=== PATIENT | female | born 1935 | race Caucasian/White ===

== ENCOUNTER → 2016-11-26 | Outpatient (CLI) | payer OTHER, MEDICAID ==
[~2016-11-26] MED LIST: AMLO5TAB; ASPI81CH43; GUAISYP5; LANS15CA21; MELO-86; NOR5T; TOLT2TAB6; [UNRECOGNIZED DRUG - CODE]
[2016-11-26 15:37] LABS: Basophils # (auto) 0 uL; Basophils % (auto) 0.6 % (0.0-2.0); Eosinophils # (auto) 0.3 uL; Eosinophils % (auto) 3.2 % (0.0-7.0); Hematocrit 46.2 % (36.0-46.0); Hemoglobin 15.5 g/dL (12.2-16.2); Lymphocytes % (auto) 25.8 % (10.0-50.0); Mean Corpuscular Hemoglobin 33.8 pg (28.0-32.0); Mean Corpuscular Hgb Conc. 33.5 g/dL (32.0-36.0); Mean Corpuscular Volume 100.8 fL (80.0-100.0); Mean Platelet Volume 8.4 fL (7.4-10.4); Monocytes # (auto) 0.5 uL; Monocytes % (auto) 6.9 % (0.0-12.0); Neutrophils % (auto) 63.5 % (37.0-80.0); Platelet Count (auto) 312 10^3/uL (140-450); Red Cell Distribution Width 15.6 % (11.6-16.0); White Blood Cell 7.9 10^3/uL (4.4-10.8)
[2016-11-26 16:23] LABS: Albumin 3.8 g/dL (3.4-5.0); BUN/Creatinine Ratio 26.4; Bilirubin, Total 0.6 mg/dL (0.2-1.0); Calcium 9.4 mg/dL (8.5-10.1); Potassium 3.8 mmol/L (3.5-5.1); Total Protein 7.6 g/dL (6.4-8.2)
== END | disposition home or self-care (01) ==
LOC: LAB 15:08
DX: Z79.899 Other long term (current) drug therapy (principal); I10 Essential (primary) hypertension; M06.9 Rheumatoid arthritis, unspecified; M54.10 Radiculopathy, site unspecified; D64.9 Anemia, unspecified; M25.50 Pain in unspecified joint
CPT/HCPCS: 36415; 80053; 85025; 85652; 86141

== ENCOUNTER → 2016-12-09 | Outpatient (CLI) | payer OTHER, MEDICAID ==
[2016-12-09 09:51] LABS: Basophils # (auto) 0.1 uL; Basophils % (auto) 1.1 % (0.0-2.0); Eosinophils # (auto) 0.4 uL; Eosinophils % (auto) 5.7 % (0.0-7.0); Hematocrit 44.6 % (36.0-46.0); Hemoglobin 14.8 g/dL (12.2-16.2); Lymphocytes # (auto) 1.8 uL; Lymphocytes % (auto) 24.9 % (10.0-50.0); Mean Corpuscular Hemoglobin 33.3 pg (28.0-32.0); Mean Corpuscular Hgb Conc. 33.3 g/dL (32.0-36.0); Monocytes # (auto) 0.5 uL; Monocytes % (auto) 6.3 % (0.0-12.0); Neutrophils # (auto) 4.6 uL; Platelet Count (auto) 275 10^3/uL (140-450); Red Cell Distribution Width 15.4 % (11.6-16.0); White Blood Cell 7.4 10^3/uL (4.4-10.8)
[2016-12-09 09:57] LABS: Albumin 3.6 g/dL (3.4-5.0); BUN/Creatinine Ratio 23.3; Bilirubin, Total 0.9 mg/dL (0.2-1.0); Calcium 9.5 mg/dL (8.5-10.1); Potassium 3.8 mmol/L (3.5-5.1); Total Protein 7.1 g/dL (6.4-8.2); Urine Bilirubin Negative (Negative); Urine Blood Negative /uL (Negative); Urine Color Yellow (Yellow); Urine Glucose Normal (Normal); Urine Ketone Negative (Negative); Urine RBC 2 /hpf (0 - 4); Urine Squamous Epithelial Cell FEW /hpf (<5); Urine Urobilinogen Normal (Negative)
[2016-12-09 10:08] LABS: Urine Nitrite POSITIVE (Negative)
== END | disposition home or self-care (01) ==
LOC: LAB 08:33
PROVIDERS: ATTEND Physician Assistant
DX: I10 Essential (primary) hypertension (principal); E78.00 Pure hypercholesterolemia, unspecified; E55.9 Vitamin D deficiency, unspecified; J44.9 Chronic obstructive pulmonary disease, unspecified
CPT/HCPCS: 36415; 80053; 80061; 81001; 82306; 82607; 83036; 84443; 85025

== ENCOUNTER 2017-01-25 14:03 | Emergency (ER) | payer OTHER, MEDICAID ==
[~2017-01-25] VITALS: Ht 170.2 cm; Wt 78.0 kg
[2017-01-25 14:14] VITALS: BP 124/70
[2017-01-25 14:57] LABS: Basophils # (auto) 0.1 uL; Basophils % (auto) 0.6 % (0.0-2.0); Eosinophils # (auto) 0.2 uL; Eosinophils % (auto) 1.9 % (0.0-7.0); Hematocrit 45.2 % (36.0-46.0); Hemoglobin 15.1 g/dL (12.2-16.2); Lymphocytes # (auto) 2.1 uL; Mean Corpuscular Hemoglobin 32.6 pg (28.0-32.0); Mean Corpuscular Hgb Conc. 33.3 g/dL (32.0-36.0); Mean Corpuscular Volume 97.7 fL (80.0-100.0); Mean Platelet Volume 8.5 fL (7.4-10.4); Monocytes # (auto) 0.4 uL; Monocytes % (auto) 4.6 % (0.0-12.0); Neutrophils # (auto) 6.5 uL; Neutrophils % (auto) 69.9 % (37.0-80.0); Platelet Count (auto) 330 10^3/uL (140-450); Red Cell Distribution Width 15.5 % (11.6-16.0); White Blood Cell 9.3 10^3/uL (4.4-10.8)
[2017-01-25 15:17] LABS: Albumin 3.8 g/dL (3.4-5.0); BUN/Creatinine Ratio 33.3; Calcium 9.6 mg/dL (8.5-10.1); Potassium 3.6 mmol/L (3.5-5.1); Total Protein 7.6 g/dL (6.4-8.2)
== END 2017-01-25 19:26 | disposition left against medical advice (07) ==
LOC: EDUNIT# 14:03 → ER 14:03
DX: R53.1 Weakness (principal); Z53.21 Procedure and treatment not carried out due to patient leaving prior to being seen by health care provider
CPT/HCPCS: 36415; 80053; 85025; 93005

== ENCOUNTER 2017-02-10 19:36 | Inpatient (IN) | payer OTHER, MEDICAID ==
[~2017-02-10] VITALS: Ht 170.2 cm; Wt 76.5 kg
[2017-02-10 20:37] LABS: Hemoglobin 15.4 g/dL (12.2-16.2); Mean Corpuscular Hemoglobin 32.7 pg (28.0-32.0); Mean Corpuscular Hgb Conc. 33.4 g/dL (32.0-36.0); Mean Corpuscular Volume 97.8 fL (80.0-100.0); Mean Platelet Volume 8.6 fL (7.4-10.4); Platelet Count (auto) 330 10^3/uL (140-450); Red Cell Distribution Width 15.3 % (11.6-16.0); SUSPECT VIEW TRANSMISSION; White Blood Cell 18.5 10^3/uL (4.4-10.8)
[2017-02-10] MEDS ORDERED: SODIUM CHLORIDE 0.9% 1,000 ML IV ONE (20:45)
[2017-02-10] MEDS ORDERED: cefTRIAXone 1GM/50ML D5W 50 ML IV ONE (20:45)
[2017-02-10] MEDS ORDERED: VANCOMYCIN 1GM/250ML D5W 250 ML IV ONE (20:45)
[2017-02-10 20:46] LABS: Urine Bilirubin Negative (Negative); Urine Blood Negative /uL (Negative); Urine Color Yellow (Yellow); Urine Glucose Normal (Normal); Urine Ketone Negative (Negative); Urine Mucus FEW (None Seen); Urine RBC <1 /hpf (0 - 4); Urine Squamous Epithelial Cell FEW /hpf (<5)
[2017-02-10 20:47] LABS: Urine Nitrite POSITIVE (Negative)
[2017-02-10 20:50] LABS: Metamyelocytes % 0; Myelocytes % 0; Promyelocytes % 0; Reactive Lymphocytes 0
[2017-02-10 20:56] LABS: INR 0.97 (0.9-1.15); Partial Thromboplastin Time 26.8 sec (22.64-33.71); Prothrombin Time 10.5 sec (9.37-12.3)
[2017-02-10 21:28] LABS: Albumin 4.1 g/dL (3.4-5.0); Alkaline Phosphatase 93 U/L (45-117); Anion Gap 9 (5-15); Aspartate Aminotransferase 30 U/L (15-37); BUN/Creatinine Ratio 25.3; Bilirubin, Total 0.9 mg/dL (0.2-1.0); Blood Urea Nitrogen 25 mg/dL (7-18); Calcium 9.9 mg/dL (8.5-10.1); Carbon Dioxide 27 mmol/L (21-32); Chloride 101 mmol/L (98-107); GFR African American 70 mL/min; GFR Non-African American 58 mL/min; Glucose 150 mg/dL (74-106); Magnesium 2.4 mg/dL (1.6-2.6); Sodium 137 mmol/L (136-145); Total Protein 8.1 g/dL (6.4-8.2)
[2017-02-10 22:35] LABS: Platelet Estimate Adequate
[2017-02-11] MEDS ORDERED: HYDROmorphone HCL 2 MG/ML VL IV ONE (01:15)
[2017-02-11] MEDS ORDERED: ONDANSETRON HCL 4 MG/2 ML VIAL IV ONE (01:15)
[2017-02-11] MEDS ORDERED: ACETAMINOPHEN 325 MG TAB PO PRN (06:15)
[2017-02-11] MEDS ORDERED: NITROGLYCERIN 0.4 MG SL TAB SL PRN (06:15)
[2017-02-11] MEDS ORDERED: ONDANSETRON HCL 4 MG/2 ML VIAL IV PRN (06:15)
[2017-02-11] MEDS ORDERED: MORPHINE SULF INJ 2 MG/ML SYRINGE 1ML IV PRN (06:15)
[2017-02-11] MEDS ORDERED: POTASSIUM CHL 20 Meq TABLET PO ONE (08:00)
[2017-02-11] MEDS ORDERED: VANCOMYCIN PER PHARMACY 0 MG IV SCH (09:00)
[2017-02-11] MEDS: cefTRIAXone 1GM/50ML D5W 50 ML IV SCH ×2 (09:02→21:41)
[2017-02-11] MEDS: FAMOTIDINE 20 MG TAB PO SCH ×2 (10:30→21:41)
[2017-02-11] MEDS: amLODIPine BESYLATE 5 MG TAB PO SCH (10:30)
[2017-02-11] MEDS: ENOXAPARIN SOD 40 MG/0.4 ML SYRINGE SC SCH (10:30)
[2017-02-11] MEDS: ERYTHROMY OPTH OINT 5mg/gm 1gm OP SCH ×4 (10:30→22:00)
[2017-02-11] MEDS: VANCOMYCIN 1GM/250ML D5W 250 ML IV SCH ×2 (10:30→23:09)
[2017-02-11] MEDS: HYDROcodone-ACET 5/325MG TAB PO PRN (11:53)
[2017-02-11] MEDS ORDERED: MIRA25TA PO (13:28)
[2017-02-11] MEDS ORDERED: DICL-163 PO (13:28)
[2017-02-11] MEDS ORDERED: PAR20T PO (13:28)
[2017-02-11] MEDS ORDERED: HYDR-2652 PO (13:28)
[2017-02-11] MEDS ORDERED: CHLO50TA PO (13:28)
[2017-02-11] MEDS: SODIUM CHLORIDE 0.9% 1,000 ML IV SCH (14:37)
[2017-02-11 22:54] VITALS: BP 129/75
[2017-02-12] MEDS: ERYTHROMY OPTH OINT 5mg/gm 1gm OP SCH ×6 (01:22→22:00)
[2017-02-12] MEDS: HYDROcodone-ACET 5/325MG TAB PO PRN ×2 (03:23→15:48)
[2017-02-12 06:15] LABS: Basophils # (auto) 0 uL; Basophils % (auto) 0.3 % (0.0-2.0); Eosinophils # (auto) 0 uL; Eosinophils % (auto) 0.4 % (0.0-7.0); Hematocrit 40.3 % (36.0-46.0); Hemoglobin 13.2 g/dL (12.2-16.2); Lymphocytes # (auto) 1.4 uL; Lymphocytes % (auto) 15.4 % (10.0-50.0); Mean Corpuscular Hemoglobin 32.3 pg (28.0-32.0); Mean Corpuscular Hgb Conc. 32.8 g/dL (32.0-36.0); Mean Corpuscular Volume 98.4 fL (80.0-100.0); Mean Platelet Volume 8.8 fL (7.4-10.4); Monocytes # (auto) 0.8 uL; Monocytes % (auto) 9.2 % (0.0-12.0); Neutrophils # (auto) 6.7 uL; Neutrophils % (auto) 74.7 % (37.0-80.0); Platelet Count (auto) 245 10^3/uL (140-450); Red Cell Distribution Width 15.2 % (11.6-16.0)
[2017-02-12] MEDS: SODIUM CHLORIDE 0.9% 1,000 ML IV SCH ×2 (06:22→23:35)
[2017-02-12 06:30] LABS: Albumin 3.2 g/dL (3.4-5.0); BUN/Creatinine Ratio 22.2; Magnesium 2.1 mg/dL (1.6-2.6)
[2017-02-12 06:33] LABS: Bilirubin, Total 0.6 mg/dL (0.2-1.0); Total Protein 6.6 g/dL (6.4-8.2)
[2017-02-12 06:47] LABS: Potassium 2.9 mmol/L (3.5-5.1)
[2017-02-12 08:00] VITALS: BP 125/66
[2017-02-12] MEDS: cefTRIAXone 1GM/50ML D5W 50 ML IV SCH ×2 (08:37→21:11)
[2017-02-12 09:00] VITALS: BP 125/66
[2017-02-12] MEDS: VANCOMYCIN 1GM/250ML D5W 250 ML IV SCH (11:13)
[2017-02-12] MEDS: ENOXAPARIN SOD 40 MG/0.4 ML SYRINGE SC SCH (11:14)
[2017-02-12] MEDS: amLODIPine BESYLATE 5 MG TAB PO SCH (11:14)
[2017-02-12] MEDS: FAMOTIDINE 20 MG TAB PO SCH ×2 (11:15→21:11)
[2017-02-12] MEDS ORDERED: POTASSIUM CHL 20 Meq TABLET PO ONE (12:45)
[2017-02-12 13:00] VITALS: BP 115/64
[2017-02-12 17:00] VITALS: BP 121/73
[2017-02-13] MEDS: ERYTHROMY OPTH OINT 5mg/gm 1gm OP SCH ×2 (02:00→05:40)
[2017-02-13 06:23] LABS: Calcium 9.3 mg/dL (8.5-10.1); Potassium 3.1 mmol/L (3.5-5.1)
[2017-02-13 06:25] LABS: BUN/Creatinine Ratio 18.4
[2017-02-13 09:02] VITALS: BP 130/61
[2017-02-13] MEDS: FAMOTIDINE 20 MG TAB PO SCH (09:53)
[2017-02-13] MEDS: amLODIPine BESYLATE 5 MG TAB PO SCH (09:54)
[2017-02-13] MEDS: ENOXAPARIN SOD 40 MG/0.4 ML SYRINGE SC SCH (09:54)
[2017-02-13] MEDS: cefTRIAXone 1GM/50ML D5W 50 ML IV SCH (09:54)
[2017-02-13] MEDS ORDERED: AMOX-263 PO (11:35)
[2017-02-13 13:23] VITALS: BP 130/61
[2017-02-13 13:28] VITALS: BP 114/66
== END 2017-02-13 14:20 | disposition home or self-care (01) | DRG 853 ==
LOC: EDBD 19:36 → ER 19:38 → TELE 19:39 → TELE-WESTW 02-11 20:45
PROVIDERS: ADMIT Nurse Practitioner; ATTEND Internal Medicine
PROC: 09BM3ZZ Excision of Nasal Septum, Percutaneous Approach (ICD-10-PCS; principal; 2017-02-10)
DX: A41.51 Sepsis due to Escherichia coli [E. coli] (principal); G08 Intracranial and intraspinal phlebitis and thrombophlebitis; G93.41 Metabolic encephalopathy; L03.211 Cellulitis of face; N39.0 Urinary tract infection, site not specified; E87.6 Hypokalemia; F17.210 Nicotine dependence, cigarettes, uncomplicated; H10.9 Unspecified conjunctivitis; I10 Essential (primary) hypertension; J44.9 Chronic obstructive pulmonary disease, unspecified; Z80.8 Family history of malignant neoplasm of other organs or systems; Z86.73 Personal history of transient ischemic attack (TIA), and cerebral infarction without residual deficits; M19.90 Unspecified osteoarthritis, unspecified site; Z88.8 Allergy status to other drugs, medicaments and biological substances; Z79.82 Long term (current) use of aspirin; Z90.710 Acquired absence of both cervix and uterus; Z90.89 Acquired absence of other organs; S02.2XXA Fracture of nasal bones, initial encounter for closed fracture; Z85.828 Personal history of other malignant neoplasm of skin
CPT/HCPCS: 36415; 51702; 70450; 70486; 71010; 80048; 80053; 80202; 80307; 80320; 81001; 83605; 83735; 84132; 84484; 85007; 85025; 85027; 85379; 85610; 85730; 87040; 87086; 87088; 87186; 87205; 93005; 94761; 95819; 96361; 96365; 96366; 96367; 96375; 97116; 97530; J0696; J2405

== ENCOUNTER 2017-04-01 19:56 | Emergency (ER) | payer MEDICAID, OTHER ==
[~2017-04-01] VITALS: Ht 170.2 cm; Wt 79.4 kg
[~2017-04-01 19:56] MED LIST changes: -AMLO5TAB; +AMOX-263 PO; -ASPI81CH43; +CHLO50TA PO; +DICL-163 PO; -GUAISYP5; +HYDR-2652 PO; -LANS15CA21; -MELO-86; +MIRA25TA PO; -NOR5T; +PAR20T PO; -TOLT2TAB6; -[UNRECOGNIZED DRUG - CODE]
[2017-04-01 20:23] VITALS: BP 147/72
[2017-04-01 21:04] LABS: Basophils # (auto) 0 uL; Basophils % (auto) 0.4 % (0.0-2.0); CONDITION Y; Eosinophils # (auto) 0.1 uL; Eosinophils % (auto) 1.3 % (0.0-7.0); Hematocrit 45.4 % (36.0-46.0); Hemoglobin 15.2 g/dL (12.2-16.2); Lymphocytes # (auto) 1.4 uL; Mean Corpuscular Hemoglobin 32.7 pg (28.0-32.0); Mean Corpuscular Hgb Conc. 33.5 g/dL (32.0-36.0); Mean Corpuscular Volume 97.6 fL (80.0-100.0); Mean Platelet Volume 8.6 fL (7.4-10.4); Monocytes # (auto) 0.8 uL; Monocytes % (auto) 10.7 % (0.0-12.0); Neutrophils # (auto) 5.1 uL; Neutrophils % (auto) 68.6 % (37.0-80.0); Platelet Count (auto) 293 10^3/uL (140-450); Red Cell Distribution Width 16.6 % (11.6-16.0); White Blood Cell 7.5 10^3/uL (4.4-10.8)
[2017-04-01 21:16] LABS: Albumin 3.6 g/dL (3.4-5.0); Anion Gap 10 (5-15); Aspartate Aminotransferase 30 U/L (15-37); BUN/Creatinine Ratio 20.5; Blood Urea Nitrogen 16 mg/dL (7-18); Calcium 9.4 mg/dL (8.5-10.1); Carbon Dioxide 23 mmol/L (21-32); Chloride 109 mmol/L (98-107); GFR African American 91 mL/min; GFR Non-African American 76 mL/min; Glucose 121 mg/dL (74-106); Magnesium 2.1 mg/dL (1.6-2.6); Potassium 3.6 mmol/L (3.5-5.1); Sodium 142 mmol/L (136-145)
[2017-04-01 21:17] LABS: INR 0.96 (0.9-1.15); Partial Thromboplastin Time 27.3 sec (22.64-33.71); Prothrombin Time 10.5 sec (9.37-12.3)
[2017-04-01 21:21] LABS: Alkaline Phosphatase 91 U/L (45-117); Bilirubin, Total 0.6 mg/dL (0.2-1.0); Total Protein 7.6 g/dL (6.4-8.2)
[2017-04-01 21:23] LABS: B-Type Natriuretic Peptide 42.47 pg/mL (0-100)
[2017-04-01 21:35] LABS: Temperature: 23.4 C (20.0-25.0)
== END 2017-04-02 | disposition left against medical advice (07) ==
LOC: ER 20:04
DX: R53.1 Weakness (principal); R47.81 Slurred speech; Z53.21 Procedure and treatment not carried out due to patient leaving prior to being seen by health care provider
CPT/HCPCS: 36415; 70450; 71010; 80053; 83735; 83880; 84484; 85025; 85610; 85730; 93005

== ENCOUNTER → 2017-04-15 | Outpatient (CLI) | payer OTHER | END | disposition home or self-care (01) | LOC: LAB 11:30 | PROVIDERS: ATTEND Psychiatry & Neurology Neurology | DX: Z09 Encounter for follow-up examination after completed treatment for conditions other than malignant neoplasm (principal) | CPT/HCPCS: 83090 ==

== ENCOUNTER 2017-06-09 18:50 | Inpatient (IN) | payer OTHER, MEDICAID ==
[~2017-06-09] VITALS: Ht 167.6 cm; Wt 77.1 kg
[2017-06-09] MEDS ORDERED: ASPirin 81 mg TAB PO ONE (20:00)
[2017-06-09] MEDS ORDERED: SODIUM CHLORIDE 0.9% 1,000 ML IV ONE (20:00)
[2017-06-09] MEDS ORDERED: ACETAMINOPHEN 500 MG TAB PO PRN (20:30)
[2017-06-09] MEDS ORDERED: MORPHINE SULF INJ 2 MG/ML SYRINGE 1ML IV PRN (20:30)
[2017-06-09] MEDS ORDERED: HYDROcodone-ACET 5/325MG TAB PO PRN (20:30)
[2017-06-09] MEDS ORDERED: LACTULOSE 20Gm/30ML SOLN PO PRN (20:30)
[2017-06-09 20:35] LABS: Basophils # (auto) 0.1 uL; Basophils % (auto) 0.9 % (0.0-2.0); CONDITION Y; Eosinophils # (auto) 0.2 uL; Eosinophils % (auto) 2.1 % (0.0-7.0); Hematocrit 44.3 % (36.0-46.0); Hemoglobin 14.7 g/dL (12.2-16.2); Lymphocytes # (auto) 2.2 uL; Mean Corpuscular Hemoglobin 33.2 pg (28.0-32.0); Mean Corpuscular Hgb Conc. 33.1 g/dL (32.0-36.0); Mean Corpuscular Volume 100.3 fL (80.0-100.0); Mean Platelet Volume 9.2 fL (7.4-10.4); Monocytes # (auto) 0.5 uL; Neutrophils # (auto) 5.2 uL; Platelet Count (auto) 265 10^3/uL (140-450); White Blood Cell 8.1 10^3/uL (4.4-10.8)
[2017-06-09 20:53] LABS: Chloride 109 mmol/L (98-107); Potassium 3.4 mmol/L (3.5-5.1); Sodium 143 mmol/L (136-145)
[2017-06-09 21:00] LABS: Albumin 3.2 g/dL (3.4-5.0); Anion Gap 8 (5-15); Aspartate Aminotransferase 44 U/L (15-37); BUN/Creatinine Ratio 23.5; Blood Urea Nitrogen 20 mg/dL (7-18); Carbon Dioxide 26 mmol/L (21-32); GFR African American 83 mL/min; GFR Non-African American 68 mL/min; Glucose 104 mg/dL (74-106); Magnesium 2.3 mg/dL (1.6-2.6)
[2017-06-09 21:09] LABS: Alkaline Phosphatase 91 U/L (45-117); Bilirubin, Total 0.7 mg/dL (0.2-1.0); Total Protein 6.8 g/dL (6.4-8.2)
[2017-06-09 21:11] LABS: B-Type Natriuretic Peptide 23.58 pg/mL (0-100)
[2017-06-09 21:12] LABS: Temperature: 22.1 C (20.0-25.0)
[2017-06-09 22:07] VITALS: BP 163/79
[2017-06-09] MEDS: ATORVASTATIN 20 MG TAB PO SCH (22:07)
[2017-06-09] MEDS: hydrALAZINE HCL 25 MG TAB PO SCH (22:07)
[2017-06-09] MEDS ORDERED: HYDR-4663 PO (23:09)
[2017-06-09] MEDS ORDERED: METH2.5T3 PO (23:09)
[2017-06-09] MEDS ORDERED: PYRI200T8 PO (23:13)
[2017-06-09] MEDS ORDERED: FLUT250M2 INH (23:13)
[2017-06-09] MEDS ORDERED: FOLI1TAB6 PO (23:13)
[2017-06-09] MEDS ORDERED: ASCO500T11 PO (23:13)
[2017-06-09] MEDS ORDERED: GABA-339 PO (23:13)
[2017-06-09] MEDS ORDERED: LANS30CA63 PO (23:13)
[2017-06-09 23:39] VITALS: BP 163/79
[2017-06-10] VITALS (7 sets, daily range): BP systolic 132–163; BP diastolic 71–89
[2017-06-10 06:59] LABS: Basophils # (auto) 0 uL; Basophils % (auto) 0.6 % (0.0-2.0); CONDITION Y; Eosinophils # (auto) 0.2 uL; Eosinophils % (auto) 4.1 % (0.0-7.0); Hematocrit 41.3 % (36.0-46.0); Hemoglobin 13.9 g/dL (12.2-16.2); Lymphocytes # (auto) 1.9 uL; Lymphocytes % (auto) 31.6 % (10.0-50.0); Mean Corpuscular Hemoglobin 33.2 pg (28.0-32.0); Mean Corpuscular Hgb Conc. 33.6 g/dL (32.0-36.0); Mean Corpuscular Volume 98.6 fL (80.0-100.0); Mean Platelet Volume 9.2 fL (7.4-10.4); Monocytes # (auto) 0.5 uL; Monocytes % (auto) 7.9 % (0.0-12.0); Neutrophils # (auto) 3.4 uL; Neutrophils % (auto) 55.8 % (37.0-80.0); Platelet Count (auto) 258 10^3/uL (140-450); Red Cell Distribution Width 16.8 % (11.6-16.0); White Blood Cell 6.1 10^3/uL (4.4-10.8)
[2017-06-10 07:23] LABS: BUN/Creatinine Ratio 30.8; Calcium 9.2 mg/dL (8.5-10.1); Potassium 3.2 mmol/L (3.5-5.1)
[2017-06-10 08:45] LABS: Temperature: 21.9 C (20.0-25.0)
[2017-06-10] MEDS: hydrALAZINE HCL 25 MG TAB PO SCH ×2 (10:00→22:08)
[2017-06-10] MEDS: PARoxetine 20 MG TAB PO SCH (10:27)
[2017-06-10] MEDS: ENOXAPARIN SOD 40 MG/0.4 ML SYRINGE SC SCH (10:28)
[2017-06-10] MEDS ORDERED: LORazepam 2MG/ML-1ML VIAL IV ONE (11:15)
[2017-06-10 14:04] LABS: Urine Bilirubin Negative (Negative); Urine Blood TRACE /uL (Negative); Urine Color Yellow (Yellow); Urine Glucose Normal (Normal); Urine Ketone Negative (Negative); Urine Mucus FEW (None Seen); Urine Nitrite Negative (Negative); Urine RBC 3 /hpf (0 - 4); Urine Squamous Epithelial Cell FEW /hpf (<5); Urine Urobilinogen Normal (Negative); Urine pH 5.5 (5.0-8.0)
[2017-06-10] MEDS ORDERED: METH2.5T3 PO (15:26)
[2017-06-10] MEDS ORDERED: [UNRECOGNIZED DRUG - CODE] OR ×2 (15:30→15:32)
[2017-06-10] MEDS ORDERED: PYRI50TA PO (15:32)
[2017-06-10] MEDS ORDERED: POTASSIUM CHL 20 Meq TABLET PO ONE (17:45)
[2017-06-10] MEDS ORDERED: ASPirin-EC 81 mg tab PO ONE (18:00)
[2017-06-10] MEDS: ATORVASTATIN 20 MG TAB PO SCH (22:08)
[2017-06-11 05:30] VITALS: BP 150/69
[2017-06-11 06:54] LABS: Magnesium 2.2 mg/dL (1.6-2.6); Potassium 3.4 mmol/L (3.5-5.1)
[2017-06-11 07:54] VITALS: BP 139/86
[2017-06-11] MEDS ORDERED: POTASSIUM CHL 20 Meq TABLET PO ONE (09:30)
[2017-06-11] MEDS: hydrALAZINE HCL 25 MG TAB PO SCH ×2 (10:16→21:51)
[2017-06-11] MEDS: ENOXAPARIN SOD 40 MG/0.4 ML SYRINGE SC SCH (10:16)
[2017-06-11] MEDS: PARoxetine 20 MG TAB PO SCH (10:16)
[2017-06-11] MEDS: ASPirin-EC 81 mg tab PO SCH (10:16)
[2017-06-11] MEDS: SOD CHL 0.9%/ KCL 20MEQ 1,000 ML IV SCH (11:15)
[2017-06-11] MEDS ORDERED: cefTRIAXone 1GM/50ML D5W 50 ML IV ONE (11:15)
[2017-06-11] MEDS ORDERED: traMADol HCL 50 MG TAB PO PRN (11:45)
[2017-06-11 11:50] VITALS: BP_SYST 126; BP_SYST 147; BP_DIAS 60; BP_DIAS 86
[2017-06-11 17:05] VITALS: BP 149/76
[2017-06-11 20:00] VITALS: BP 154/81
[2017-06-11] MEDS: ATORVASTATIN 20 MG TAB PO SCH (21:51)
[2017-06-11 22:00] VITALS: BP 154/81
[2017-06-12] MEDS: SOD CHL 0.9%/ KCL 20MEQ 1,000 ML IV SCH ×2 (00:35→02:54)
[2017-06-12 05:00] VITALS: BP 154/75
[2017-06-12 06:28] LABS: Potassium 3.6 mmol/L (3.5-5.1)
[2017-06-12 06:37] LABS: BUN/Creatinine Ratio 26.1; Calcium 8.8 mg/dL (8.5-10.1)
[2017-06-12] MEDS: cefTRIAXone 1GM/50ML D5W 50 ML IV SCH (09:12)
[2017-06-12] MEDS: ENOXAPARIN SOD 40 MG/0.4 ML SYRINGE SC SCH ×2 (10:30→10:40)
[2017-06-12] MEDS: ASPirin-EC 81 mg tab PO SCH (10:30)
[2017-06-12] MEDS: hydrALAZINE HCL 25 MG TAB PO SCH ×2 (10:31→21:50)
[2017-06-12] MEDS: PARoxetine 20 MG TAB PO SCH (10:33)
[2017-06-12 12:12] VITALS: BP 118/74
[2017-06-12 12:13] VITALS: BP 148/59
[2017-06-12 16:36] VITALS: BP 140/67
[2017-06-12 20:00] VITALS: BP 140/67
[2017-06-12] MEDS: ATORVASTATIN 20 MG TAB PO SCH (21:50)
[2017-06-12 22:00] VITALS: BP 153/58
[2017-06-13] MEDS: SOD CHL 0.9%/ KCL 20MEQ 1,000 ML IV SCH (03:15)
[2017-06-13 05:21] VITALS: BP 156/77
[2017-06-13 08:00] VITALS: BP 169/59
[2017-06-13 08:25] VITALS: BP 169/59
[2017-06-13] MEDS: ASPirin-EC 81 mg tab PO SCH (09:30)
[2017-06-13] MEDS: hydrALAZINE HCL 25 MG TAB PO SCH (09:30)
[2017-06-13] MEDS: PARoxetine 20 MG TAB PO SCH (09:30)
[2017-06-13] MEDS: cefTRIAXone 1GM/50ML D5W 50 ML IV SCH (09:31)
[2017-06-13] MEDS: ENOXAPARIN SOD 40 MG/0.4 ML SYRINGE SC SCH (09:35)
[2017-06-13] MEDS ORDERED: CEPH-37 PO (09:57)
[2017-06-13] MEDS ORDERED: LOS25T PO (09:57)
[2017-06-13] MEDS ORDERED: LOSARTAN POTASSIUM 25 MG TAB PO SCH (10:00)
[2017-06-13 13:00] VITALS: BP 144/66
[2017-06-13 13:09] VITALS: BP 144/66
[2017-06-13 15:50] VITALS: BP 144/66
== END 2017-06-13 15:50 | disposition home or self-care (01) | DRG 884 ==
LOC: EDBD 18:50 → ER 18:57 → OVERFLOW 18:58 → TELE-EAST 21:50
PROVIDERS: ADMIT Nurse Practitioner Family; ATTEND Internal Medicine
DX: F03.90 Unspecified dementia, unspecified severity, without behavioral disturbance, psychotic disturbance, mood disturbance, and anxiety (principal); G93.41 Metabolic encephalopathy; J44.9 Chronic obstructive pulmonary disease, unspecified; N30.90 Cystitis, unspecified without hematuria; R00.1 Bradycardia, unspecified; R47.1 Dysarthria and anarthria; Z86.73 Personal history of transient ischemic attack (TIA), and cerebral infarction without residual deficits; I10 Essential (primary) hypertension; F17.210 Nicotine dependence, cigarettes, uncomplicated; E78.5 Hyperlipidemia, unspecified; E87.6 Hypokalemia; F32.9 Major depressive disorder, single episode, unspecified; M19.90 Unspecified osteoarthritis, unspecified site; Z79.82 Long term (current) use of aspirin; Z79.899 Other long term (current) drug therapy; Z80.7 Family history of other malignant neoplasms of lymphoid, hematopoietic and related tissues; Z82.49 Family history of ischemic heart disease and other diseases of the circulatory system; Z83.3 Family history of diabetes mellitus; Z85.828 Personal history of other malignant neoplasm of skin; Z88.8 Allergy status to other drugs, medicaments and biological substances; Z90.49 Acquired absence of other specified parts of digestive tract; Z90.710 Acquired absence of both cervix and uterus
CPT/HCPCS: 36415; 70450; 70551; 71010; 80048; 80053; 81001; 82550; 82607; 82746; 83735; 83880; 84132; 84443; 84484; 85025; 85379; 85652; 87040; 87086; 93005; 93886; 95819; 96360; 97116; 97163; 97530; 99291; J0696

== ENCOUNTER 2017-08-05 11:01 | Inpatient (IN) | payer OTHER, MEDICAID ==
[~2017-08-05] VITALS: Ht 175.3 cm; Wt 76.8 kg
[~2017-08-05 11:01] MED LIST changes: -AMOX-263 PO; +ASCO500T11 PO; +CEPH-37 PO; +FLUT250M2 INH; +FOLI1TAB6 PO; +GABA-339 PO; -HYDR-2652 PO; +HYDR-4683 PO; +HYDR50TA15 PO; +LOS25T PO; +METH2.5T3 PO; -MIRA25TA PO; +PYRI50TA PO
[2017-08-05] MEDS ORDERED: SODIUM CHLORIDE 0.9% 500 ML IV ONE (11:12)
[2017-08-05 12:23] LABS: Basophils # (auto) 0 uL; Basophils % (auto) 0.7 % (0.0-2.0); Eosinophils # (auto) 0.1 uL; Eosinophils % (auto) 1.5 % (0.0-7.0); Hematocrit 43.2 % (36.0-46.0); Hemoglobin 14.7 g/dL (12.2-16.2); Lymphocytes # (auto) 1.5 uL; Lymphocytes % (auto) 24.8 % (10.0-50.0); Mean Corpuscular Hemoglobin 33.6 pg (28.0-32.0); Monocytes # (auto) 0.2 uL; Monocytes % (auto) 3.8 % (0.0-12.0); Neutrophils # (auto) 4.3 uL; Neutrophils % (auto) 69.2 % (37.0-80.0); Nucleated Red Blood Cells % 0.1 %; Platelet Count (auto) 194 10^3/uL (140-450); Red Blood Cells 4.36 10^6/uL (4.0-5.20); Red Cell Distribution Width 15.6 % (11.8-14.3); White Blood Cell 6.2 10^3/uL (4.4-10.8)
[2017-08-05 12:43] LABS: INR 0.94 (0.9-1.15); Partial Thromboplastin Time 22.5 sec (22.64-33.71); Prothrombin Time 10.2 sec (9.37-12.3)
[2017-08-05 13:00] LABS: Alanine Aminotransferase 64 U/L (13-56); Albumin 3.5 g/dL (3.4-5.0); Alkaline Phosphatase 96 U/L (45-117); Anion Gap 7 (5-15); Aspartate Aminotransferase 32 U/L (15-37); BUN/Creatinine Ratio 28.6; Bilirubin, Total 1.4 mg/dL (0.2-1.0); Blood Urea Nitrogen 26 mg/dL (7-18); Calcium 9.8 mg/dL (8.5-10.1); Carbon Dioxide 30 mmol/L (21-32); Chloride 100 mmol/L (98-107); GFR African American 76 mL/min; GFR Non-African American 63 mL/min; Glucose 132 mg/dL (74-106); Magnesium 2.2 mg/dL (1.6-2.6); Sodium 137 mmol/L (136-145); Total Protein 8.1 g/dL (6.4-8.2)
[2017-08-05 13:04] LABS: Potassium 2.7 mmol/L (3.5-5.1)
[2017-08-05] MEDS ORDERED: POTASSIUM CHL 20 Meq TABLET PO ONE ×2 (13:15→14:15)
[2017-08-05] MEDS ORDERED: FOLIC ACID 1 MG TAB PO ONE (14:15)
[2017-08-05] MEDS ORDERED: NITROGLYCERIN 0.4 MG SL TAB SL PRN (14:15)
[2017-08-05] MEDS ORDERED: ASPirin 81 mg TAB PO ONE (14:15)
[2017-08-05] MEDS ORDERED: cefTRIAXone 1GM/50ML D5W 50 ML IV ONE (14:15)
[2017-08-05] MEDS ORDERED: MORPHINE SULFATE 10 MG/ML INJ 1ML SDV IV PRN (14:15)
[2017-08-05] MEDS ORDERED: HYDROcodone-ACET 5/325MG TAB PO PRN (14:15)
[2017-08-05 14:34] VITALS: BP 120/64
[2017-08-05] MEDS: SODIUM CHLORIDE 0.9% 1,000 ML IV SCH ×2 (14:41→23:41)
[2017-08-05 15:22] LABS: Urine Bacteria FEW /hpf (None Seen); Urine Blood TRACE /uL (Negative); Urine Mucus FEW (None Seen); Urine Specific Gravity 1.018 (1.001-1.035); Urine WBC 3 /hpf (0 - 5)
[2017-08-05] MEDS: ALBUTEROL SULF 2.5 MG/0.5ML(0.5%) NEB SOLN NEB SCH (18:10)
[2017-08-05] MEDS: IPRATROPIUM BROM 0.5 MG/2.5ML INH SOL NEB SCH (18:10)
[2017-08-05 22:00] VITALS: BP 145/83
[2017-08-05] MEDS: ATORVASTATIN 20 MG TAB PO SCH (22:41)
[2017-08-06] MEDS: ALBUTEROL SULF 2.5 MG/0.5ML(0.5%) NEB SOLN NEB SCH ×4 (00:20→19:11)
[2017-08-06] MEDS: IPRATROPIUM BROM 0.5 MG/2.5ML INH SOL NEB SCH ×4 (00:20→19:11)
[2017-08-06 05:00] VITALS: BP 121/64
[2017-08-06 07:46] LABS: Calcium 8.9 mg/dL (8.5-10.1); Potassium 3.4 mmol/L (3.5-5.1)
[2017-08-06 07:47] LABS: Basophils # (auto) 0.1 uL; Eosinophils # (auto) 0.2 uL; Eosinophils % (auto) 2.9 % (0.0-7.0); Hematocrit 35.9 % (36.0-46.0); Hemoglobin 12.2 g/dL (12.2-16.2); Lymphocytes # (auto) 1.9 uL; Lymphocytes % (auto) 35.6 % (10.0-50.0); Mean Corpuscular Hemoglobin 33.9 pg (28.0-32.0); Mean Corpuscular Hgb Conc. 34.1 g/dL (32.0-36.0); Mean Corpuscular Volume 99.2 fL (80.0-100.0); Monocytes # (auto) 0.4 uL; Monocytes % (auto) 6.7 % (0.0-12.0); Neutrophils # (auto) 2.9 uL; Neutrophils % (auto) 53.8 % (37.0-80.0); Nucleated Red Blood Cells % 0.1 %; Platelet Count (auto) 159 10^3/uL (140-450); Red Blood Cells 3.61 10^6/uL (4.0-5.20); Red Cell Distribution Width 15.5 % (11.8-14.3); White Blood Cell 5.5 10^3/uL (4.4-10.8)
[2017-08-06 07:48] LABS: BUN/Creatinine Ratio 37.5
[2017-08-06] MEDS: cefTRIAXone 1GM/50ML D5W 50 ML IV SCH (08:45)
[2017-08-06 09:00] VITALS: BP 133/60
[2017-08-06] MEDS: ASPirin 81 mg TAB PO SCH (09:28)
[2017-08-06] MEDS: FOLIC ACID 1 MG TAB PO SCH (09:28)
[2017-08-06] MEDS ORDERED: POTASSIUM CHL 20 Meq TABLET PO ONE (12:45)
[2017-08-06 13:00] VITALS: BP 116/63
[2017-08-06 17:00] VITALS: BP 143/59
[2017-08-06 20:00] VITALS: BP 131/64
[2017-08-06 22:00] VITALS: BP 131/72
[2017-08-06] MEDS: ATORVASTATIN 20 MG TAB PO SCH (22:39)
[2017-08-07] MEDS: IPRATROPIUM BROM 0.5 MG/2.5ML INH SOL NEB SCH ×3 (00:36→12:00)
[2017-08-07] MEDS: ALBUTEROL SULF 2.5 MG/0.5ML(0.5%) NEB SOLN NEB SCH ×3 (00:37→12:00)
[2017-08-07 05:00] VITALS: BP 141/66
[2017-08-07 06:26] LABS: Calcium 9.8 mg/dL (8.5-10.1); Potassium 4.5 mmol/L (3.5-5.1)
[2017-08-07 06:27] LABS: BUN/Creatinine Ratio 27.5
[2017-08-07 08:00] VITALS: BP 124/60
[2017-08-07 09:00] VITALS: BP 124/60
[2017-08-07] MEDS: cefTRIAXone 1GM/50ML D5W 50 ML IV SCH (09:14)
[2017-08-07] MEDS: ASPirin 81 mg TAB PO SCH (09:14)
[2017-08-07] MEDS: FOLIC ACID 1 MG TAB PO SCH (09:14)
[2017-08-07 13:28] VITALS: BP 120/60
== END 2017-08-07 15:35 | disposition home or self-care (01) | DRG 689 ==
LOC: ER 11:01 → EDBD 11:01 → TELE 11:02 → TELE-WESTW 21:48
PROVIDERS: ADMIT Internal Medicine; ATTEND Internal Medicine
DX: N39.0 Urinary tract infection, site not specified (principal); G92 Toxic encephalopathy; J44.9 Chronic obstructive pulmonary disease, unspecified; M06.9 Rheumatoid arthritis, unspecified; E87.6 Hypokalemia; I10 Essential (primary) hypertension; F17.210 Nicotine dependence, cigarettes, uncomplicated; R26.2 Difficulty in walking, not elsewhere classified; Z86.73 Personal history of transient ischemic attack (TIA), and cerebral infarction without residual deficits; Z88.8 Allergy status to other drugs, medicaments and biological substances; Z79.899 Other long term (current) drug therapy; Z90.49 Acquired absence of other specified parts of digestive tract; Z90.710 Acquired absence of both cervix and uterus
CPT/HCPCS: 36415; 70450; 71010; 80048; 80053; 81001; 83735; 84484; 85025; 85610; 85730; 87086; 93005; 94640; 94761; 96360; 97110; 97116; 97163; 97530; J0696

== ENCOUNTER 2017-08-23 18:59 | Emergency (ER) | payer OTHER, MEDICAID ==
[~2017-08-23] VITALS: Ht 170.2 cm; Wt 75.3 kg
[2017-08-23 19:39] LABS: Basophils # (auto) 0.1 uL; Basophils % (auto) 1.7 % (0.0-2.0); Eosinophils # (auto) 0.3 uL; Eosinophils % (auto) 3.6 % (0.0-7.0); Hematocrit 40.7 % (36.0-46.0); Hemoglobin 13.9 g/dL (12.2-16.2); Lymphocytes # (auto) 3.1 uL; Lymphocytes % (auto) 41.7 % (10.0-50.0); Mean Corpuscular Hemoglobin 33.5 pg (28.0-32.0); Mean Corpuscular Hgb Conc. 34.2 g/dL (32.0-36.0); Mean Platelet Volume 7.9 fL (6.9-10.8); Monocytes # (auto) 0.3 uL; Monocytes % (auto) 3.9 % (0.0-12.0); Neutrophils # (auto) 3.6 uL; Neutrophils % (auto) 49.1 % (37.0-80.0); Nucleated Red Blood Cells % 0.1 %; Platelet Count (auto) 359 10^3/uL (140-450); Red Cell Distribution Width 15.9 % (11.8-14.3); White Blood Cell 7.3 10^3/uL (4.4-10.8)
[2017-08-23 19:51] LABS: INR 1.15 (0.9-1.15); Partial Thromboplastin Time 30.6 sec (22.64-33.71); Prothrombin Time 12.6 sec (9.37-12.3)
[2017-08-23 20:03] LABS: Albumin 3.2 g/dL (3.4-5.0); BUN/Creatinine Ratio 26.4; Bilirubin, Total 0.4 mg/dL (0.2-1.0); Calcium 9.2 mg/dL (8.5-10.1); Total Protein 6.9 g/dL (6.4-8.2)
[2017-08-24 00:07] VITALS: BP 146/58
== END 2017-08-24 03:22 | disposition home or self-care (01) ==
LOC: ER 19:03
DX: I82.491 Acute embolism and thrombosis of other specified deep vein of right lower extremity (principal); F17.210 Nicotine dependence, cigarettes, uncomplicated; M19.90 Unspecified osteoarthritis, unspecified site; J44.9 Chronic obstructive pulmonary disease, unspecified; I10 Essential (primary) hypertension; Z86.73 Personal history of transient ischemic attack (TIA), and cerebral infarction without residual deficits; Z90.710 Acquired absence of both cervix and uterus; Z90.89 Acquired absence of other organs; Z79.899 Other long term (current) drug therapy; Z88.6 Allergy status to analgesic agent
CPT/HCPCS: 36415; 80053; 85025; 85379; 85610; 85730; 93971

== ENCOUNTER → 2017-09-23 | Outpatient (CLI) | payer OTHER, MEDICAID ==
[2017-09-23 10:49] LABS: Basophils # (auto) 0.1 uL; Basophils % (auto) 1.5 % (0.0-2.0); Eosinophils # (auto) 0.2 uL; Hematocrit 42.5 % (36.0-46.0); Hemoglobin 14.4 g/dL (12.2-16.2); Lymphocytes # (auto) 1.6 uL; Lymphocytes % (auto) 20.4 % (10.0-50.0); Mean Corpuscular Hemoglobin 33.7 pg (28.0-32.0); Mean Corpuscular Hgb Conc. 33.8 g/dL (32.0-36.0); Mean Corpuscular Volume 99.7 fL (80.0-100.0); Mean Platelet Volume 8.6 fL (6.9-10.8); Monocytes # (auto) 0.4 uL; Monocytes % (auto) 4.9 % (0.0-12.0); Neutrophils # (auto) 5.5 uL; Neutrophils % (auto) 71.2 % (37.0-80.0); Nucleated Red Blood Cells % 0.1 %; Platelet Count (auto) 273 10^3/uL (140-450); White Blood Cell 7.7 10^3/uL (4.4-10.8)
[2017-09-23 11:13] LABS: Albumin 3.7 g/dL (3.4-5.0); BUN/Creatinine Ratio 34.7; Bilirubin, Total 0.7 mg/dL (0.2-1.0); Calcium 9.8 mg/dL (8.5-10.1); Potassium 3.3 mmol/L (3.5-5.1); Total Protein 7.7 g/dL (6.4-8.2)
== END | disposition home or self-care (01) ==
LOC: LAB 10:17
DX: I10 Essential (primary) hypertension (principal); M06.9 Rheumatoid arthritis, unspecified; D64.9 Anemia, unspecified; I70.0 Atherosclerosis of aorta; E78.00 Pure hypercholesterolemia, unspecified; Z79.899 Other long term (current) drug therapy
CPT/HCPCS: 36415; 80053; 85025; 85652; 86141

== ENCOUNTER → 2017-11-27 | Outpatient (CLI) | payer OTHER, MEDICAID ==
[~2017-11-27] MED LIST changes: +ALBUAER3 IN; +CYAN100042 PO; +RIVA20TA PO
[2017-11-27 13:01] LABS: Albumin 3.6 g/dL (3.4-5.0); BUN/Creatinine Ratio 28.3; Calcium 9.4 mg/dL (8.5-10.1); Potassium 3.3 mmol/L (3.5-5.1)
[2017-11-27 13:04] LABS: Bilirubin, Total 0.5 mg/dL (0.2-1.0); Total Protein 7.4 g/dL (6.4-8.2)
== END | disposition home or self-care (01) ==
LOC: LAB 12:17
PROVIDERS: ATTEND Family Medicine
DX: M19.90 Unspecified osteoarthritis, unspecified site (principal)
CPT/HCPCS: 36415; 80053

== ENCOUNTER 2018-01-16 06:20 | Day surgery (SDC) | payer OTHER, MEDICAID ==
[2018-01-13 12:13] LABS: Basophils # (auto) 0.1 uL; Eosinophils # (auto) 0.2 uL; Eosinophils % (auto) 2.6 % (0.0-7.0); Hematocrit 41.9 % (36.0-46.0); Lymphocytes # (auto) 1.5 uL; Neutrophils # (auto) 5.3 uL
[2018-01-13 12:15] LABS: Basophils % (auto) 0.7 % (0.0-2.0); Lymphocytes % (auto) 19.1 % (10.0-50.0); Mean Corpuscular Hemoglobin 34.4 pg (28.0-32.0); Mean Corpuscular Hgb Conc. 33.5 g/dL (32.0-36.0); Mean Corpuscular Volume 102.5 fL (80.0-100.0); Monocytes # (auto) 0.6 uL; Monocytes % (auto) 7.5 % (0.0-12.0); Neutrophils % (auto) 70.1 % (37.0-80.0); Nucleated Red Blood Cells % 0.1 %; Platelet Count (auto) 290 10^3/uL (140-450); Red Blood Cells 4.08 10^6/uL (4.0-5.20); Red Cell Distribution Width 15.7 % (11.8-14.3); White Blood Cell 7.6 10^3/uL (4.4-10.8)
[2018-01-13 12:40] LABS: Albumin 3.6 g/dL (3.4-5.0); BUN/Creatinine Ratio 31.6; Bilirubin, Total 0.6 mg/dL (0.2-1.0); Calcium 9.6 mg/dL (8.5-10.1); Potassium 3.3 mmol/L (3.5-5.1); Total Protein 7.4 g/dL (6.4-8.2)
[~2018-01-16] VITALS: Ht 170.2 cm; Wt 70.8 kg
[~2018-01-16 06:20] MED LIST changes: -ASCO500T11 PO; -CEPH-37 PO; -GABA-339 PO
[2018-01-16] MEDS ORDERED: ceFAZolin 1GM/50ML 50 ML IV ONE (06:27)
[2018-01-16] MEDS ORDERED: BUPIVACAINE 0.25% INJ 50ML VIAL ONE (06:33)
[2018-01-16] MEDS ORDERED: MIDAZOLAM HCL 1MG/1ML-2 ML VIAL ONE (07:28)
[2018-01-16] MEDS ORDERED: LIDOCAINE HCL 2 %PF INJ 10ML AMP IJ ONE (07:29)
[2018-01-16] MEDS ORDERED: PROPOFOL 10 MG/ML 20 ML IV ONE ×2 (07:29→07:30)
[2018-01-16] MEDS ORDERED: fentaNYL CITRATE 100 MCG/2 ML VL ONE (07:36)
[2018-01-16] MEDS ORDERED: NALOXONE HCL 0.4 MG/ML VIAL IV PRN (07:45)
[2018-01-16] MEDS ORDERED: ONDANSETRON HCL 4 MG/2 ML VIAL IV ONE (07:45)
[2018-01-16] MEDS ORDERED: MORPHINE SULFATE 4 MG/ML SYR/VIAL IV PRN (07:45)
[2018-01-16 09:06] VITALS: BP 124/64
== END 2018-01-16 09:21 | disposition home or self-care (01) ==
LOC: SUR 06:20
PROVIDERS: ATTEND Orthopaedic Surgery
DX: G56.02 Carpal tunnel syndrome, left upper limb (principal); J44.9 Chronic obstructive pulmonary disease, unspecified; J40 Bronchitis, not specified as acute or chronic; Z90.710 Acquired absence of both cervix and uterus; F32.9 Major depressive disorder, single episode, unspecified; F17.210 Nicotine dependence, cigarettes, uncomplicated; Z90.49 Acquired absence of other specified parts of digestive tract; Z88.8 Allergy status to other drugs, medicaments and biological substances; I10 Essential (primary) hypertension; G45.9 Transient cerebral ischemic attack, unspecified; M06.9 Rheumatoid arthritis, unspecified; I63.9 Cerebral infarction, unspecified
CPT/HCPCS: 36415; 80053; 85025; 85730; J0690; J2250; J2704; J3490

== ENCOUNTER 2018-02-16 22:32 | Inpatient (IN) | payer OTHER, MEDICAID ==
[~2018-02-16] VITALS: Ht 162.6 cm; Wt 68.9 kg
[2018-02-16 23:42] LABS: Basophils # (auto) 0.1 uL; Mean Corpuscular Hemoglobin 34.8 pg (28.0-32.0); Mean Corpuscular Hgb Conc. 34.3 g/dL (32.0-36.0); Nucleated Red Blood Cells % 0.1 %
[2018-02-16 23:44] LABS: Basophils % (auto) 0.8 % (0.0-2.0); Eosinophils # (auto) 0.2 uL; Eosinophils % (auto) 1.8 % (0.0-7.0); Hematocrit 40.4 % (36.0-46.0); Hemoglobin 13.8 g/dL (12.2-16.2); Lymphocytes # (auto) 1.8 uL; Lymphocytes % (auto) 20.8 % (10.0-50.0); Mean Corpuscular Volume 101.3 fL (80.0-100.0); Monocytes # (auto) 0.6 uL; Monocytes % (auto) 7.1 % (0.0-12.0); Neutrophils # (auto) 6.1 uL; Neutrophils % (auto) 69.5 % (37.0-80.0); Platelet Count (auto) 264 10^3/uL (140-450); Red Blood Cells 3.98 10^6/uL (4.0-5.20); Red Cell Distribution Width 14.9 % (11.8-14.3); White Blood Cell 8.8 10^3/uL (4.4-10.8)
[2018-02-16 23:56] LABS: INR 1.05 (0.9-1.15); Partial Thromboplastin Time 27.8 sec (22.64-33.71); Prothrombin Time 11.4 sec (9.37-12.3)
[2018-02-16 23:58] LABS: Albumin 3.5 g/dL (3.4-5.0); Anion Gap 8 (5-15); Blood Urea Nitrogen 24 mg/dL (7-18); Calcium 9.4 mg/dL (8.5-10.1); Carbon Dioxide 23 mmol/L (21-32); Chloride 106 mmol/L (98-107); Glucose 120 mg/dL (74-106); Magnesium 2.1 mg/dL (1.6-2.6); Potassium 3.1 mmol/L (3.5-5.1); Sodium 137 mmol/L (136-145)
[2018-02-16 23:59] LABS: Alanine Aminotransferase 28 U/L (13-56); Aspartate Aminotransferase 18 U/L (15-37); GFR African American 89 mL/min; GFR Non-African American 73 mL/min
[2018-02-17 00:04] LABS: Alkaline Phosphatase 67 U/L (45-117); Bilirubin, Total 0.8 mg/dL (0.2-1.0); Total Protein 6.9 g/dL (6.4-8.2)
[2018-02-17 01:46] LABS: Urine Amorphous Crystal FEW /hpf (None Seen); Urine Bacteria NONE SEEN /hpf (None Seen); Urine Blood Negative /uL (Negative); Urine Specific Gravity 1.012 (1.001-1.035); Urine WBC 4 /hpf (0 - 5)
[2018-02-17] MEDS ORDERED: POTASSIUM CHL 20 Meq TABLET PO ONE (03:15)
[2018-02-17] MEDS ORDERED: HYDROcodone-ACET 5/325MG TAB PO PRN (04:00)
[2018-02-17] MEDS ORDERED: ONDANSETRON HCL 4 MG/2 ML VIAL IV PRN (04:00)
[2018-02-17] MEDS ORDERED: ACETAMINOPHEN 500 MG TAB PO PRN (04:00)
[2018-02-17] MEDS ORDERED: ALBUTEROL SULF 2.5 MG/0.5ML(0.5%) NEB SOLN NEB PRN (04:00)
[2018-02-17 06:37] VITALS: BP 143/64
[2018-02-17] MEDS ORDERED: LOSARTAN POTASSIUM 25 MG TAB PO SCH (10:00)
[2018-02-17] MEDS: hydrALAZINE HCL 25 MG TAB PO SCH ×2 (10:22→21:23)
[2018-02-17 17:00] VITALS: BP 132/59
[2018-02-17 17:14] VITALS: BP 138/72
[2018-02-17 17:30] VITALS: BP 145/69
[2018-02-17] MEDS ORDERED: RIVAROXABAN 20 MG TAB PO SCH (18:00)
[2018-02-17 21:56] VITALS: BP 142/75
[2018-02-17] MEDS ORDERED: ATORVASTATIN 20 MG TAB PO SCH (22:00)
[2018-02-18 05:00] VITALS: BP 150/76
[2018-02-18 06:41] LABS: Basophils # (auto) 0.1 uL; Monocytes # (auto) 0.8 uL; Neutrophils # (auto) 3.7 uL; Nucleated Red Blood Cells % 0.3 %; White Blood Cell 6.6 10^3/uL (4.4-10.8)
[2018-02-18 06:44] LABS: Eosinophils # (auto) 0.2 uL; Eosinophils % (auto) 2.3 % (0.0-7.0); Hematocrit 44.6 % (36.0-46.0); Hemoglobin 15.5 g/dL (12.2-16.2); Lymphocytes # (auto) 1.9 uL; Lymphocytes % (auto) 29.1 % (10.0-50.0); Mean Corpuscular Hemoglobin 35.4 pg (28.0-32.0); Mean Corpuscular Hgb Conc. 34.7 g/dL (32.0-36.0); Mean Corpuscular Volume 102.1 fL (80.0-100.0); Monocytes % (auto) 11.9 % (0.0-12.0); Neutrophils % (auto) 55.7 % (37.0-80.0); Platelet Count (auto) 285 10^3/uL (140-450); Red Blood Cells 4.37 10^6/uL (4.0-5.20); Red Cell Distribution Width 14.7 % (11.8-14.3)
[2018-02-18 07:39] LABS: Calcium 9.7 mg/dL (8.5-10.1)
[2018-02-18 07:42] LABS: Potassium 4.2 mmol/L (3.5-5.1)
== END 2018-02-18 09:00 | disposition left against medical advice (07) | DRG 640 ==
LOC: EDBD 22:32 → ER 22:37 → TELE 22:38 → TELE-WESTW 02-17 14:07
PROVIDERS: ADMIT Nurse Practitioner Family; ATTEND Internal Medicine Pulmonary Disease
DX: E87.6 Hypokalemia (principal); G93.41 Metabolic encephalopathy; E44.1 Mild protein-calorie malnutrition; E11.9 Type 2 diabetes mellitus without complications; F03.90 Unspecified dementia, unspecified severity, without behavioral disturbance, psychotic disturbance, mood disturbance, and anxiety; J44.9 Chronic obstructive pulmonary disease, unspecified; Z53.21 Procedure and treatment not carried out due to patient leaving prior to being seen by health care provider; I10 Essential (primary) hypertension; M19.90 Unspecified osteoarthritis, unspecified site; F17.210 Nicotine dependence, cigarettes, uncomplicated; Z83.3 Family history of diabetes mellitus; Z79.01 Long term (current) use of anticoagulants; Z79.51 Long term (current) use of inhaled steroids; Z82.3 Family history of stroke; Z82.49 Family history of ischemic heart disease and other diseases of the circulatory system; Z85.71 Personal history of Hodgkin lymphoma; Z86.73 Personal history of transient ischemic attack (TIA), and cerebral infarction without residual deficits; Z90.710 Acquired absence of both cervix and uterus; Z87.440 Personal history of urinary (tract) infections; Z68.26 Body mass index [BMI] 26.0-26.9, adult; Z88.8 Allergy status to other drugs, medicaments and biological substances
CPT/HCPCS: 36415; 70450; 71045; 80048; 80053; 81001; 82962; 83735; 83880; 84484; 85025; 85610; 85730

== ENCOUNTER → 2018-11-12 | Outpatient (CLI) | payer OTHER, MEDICAID, MEDICARE ==
[2018-11-12 13:39] LABS: Urine WBC None Seen /hpf (0 - 5)
[2018-11-12 13:47] LABS: Basophils # (auto) 0 uL; Basophils % (auto) 0.6 % (0.0-2.0); Eosinophils # (auto) 0.1 uL; Eosinophils % (auto) 0.8 % (0.0-7.0); Hematocrit 47.2 % (36.0-46.0); Hemoglobin 16.1 g/dL (12.2-16.2); Lymphocytes # (auto) 2.2 uL; Lymphocytes % (auto) 28.5 % (10.0-50.0); Mean Corpuscular Hemoglobin 32.6 pg (28.0-32.0); Mean Corpuscular Hgb Conc. 34.2 g/dL (32.0-36.0); Mean Corpuscular Volume 95.5 fL (80.0-100.0); Monocytes # (auto) 0.5 uL; Monocytes % (auto) 6.8 % (0.0-12.0); Neutrophils % (auto) 63.3 % (37.0-80.0); Nucleated Red Blood Cells % 0.1 %; Platelet Count (auto) 226 10^3/uL (140-450); Red Blood Cells 4.94 10^6/uL (4.0-5.20); Red Cell Distribution Width 13.5 % (11.8-14.3); White Blood Cell 7.9 10^3/uL (4.4-10.8)
[2018-11-12 13:57] LABS: Urine Amorphous Crystal FEW /hpf (None Seen); Urine Bacteria NONE SEEN /hpf (None Seen); Urine Blood Negative /uL (Negative); Urine Specific Gravity 1.018 (1.001-1.035); Urine WBC Clumps PRESENT /hpf (None Seen)
[2018-11-12 14:30] LABS: Albumin 3.5 g/dL (3.4-5.0); Calcium 10.2 mg/dL (8.5-10.1); Potassium 3.8 mmol/L (3.5-5.1)
[2018-11-12 14:33] LABS: BUN/Creatinine Ratio 23.1; Bilirubin, Total 0.5 mg/dL (0.2-1.0); Total Protein 7.8 g/dL (6.4-8.2)
[2018-11-12 15:01] LABS: Free T4 (Free Thyroxine) 1.2 ng/dL (0.89-1.76)
[2018-11-12 15:03] LABS: Folate (Folic Acid) 14.3 ng/mL (5.38-24)
== END | disposition home or self-care (01) ==
LOC: LAB 13:19
PROVIDERS: ATTEND Internal Medicine
DX: I10 Essential (primary) hypertension (principal); M06.9 Rheumatoid arthritis, unspecified; I63.412 Cerebral infarction due to embolism of left middle cerebral artery
CPT/HCPCS: 36415; 80053; 80061; 81001; 82607; 82746; 83036; 84439; 84443; 85025

== ENCOUNTER → 2019-03-02 | Outpatient (CLI) | payer OTHER, MEDICAID, MEDICARE ==
[~2019-03-02] MED LIST changes: +ALBUTEROL SULF 2.5 MG/0.5ML(0.5%) NEB SOLN ONE
== END | disposition home or self-care (01) ==
LOC: RT 09:27
PROVIDERS: ATTEND Internal Medicine Pulmonary Disease
DX: J44.9 Chronic obstructive pulmonary disease, unspecified (principal)
CPT/HCPCS: 94060; J7611

== ENCOUNTER → 2019-05-18 | Outpatient (CLI) | payer OTHER, MEDICAID, MEDICARE ==
[~2019-05-18] MED LIST changes: -ALBUTEROL SULF 2.5 MG/0.5ML(0.5%) NEB SOLN ONE; -HYDR-4683 PO; +HYDR-4833 PO
== END | disposition home or self-care (01) ==
LOC: XY 13:07
PROVIDERS: ATTEND Internal Medicine Pulmonary Disease
DX: R06.09 Other forms of dyspnea (principal); R06.03 Acute respiratory distress; Z86.718 Personal history of other venous thrombosis and embolism
CPT/HCPCS: 78582; A9540; A9558

== ENCOUNTER 2019-05-30 18:54 | Emergency (ER) | payer OTHER, MEDICAID ==
[~2019-05-30] VITALS: Ht 170.2 cm; Wt 67.1 kg
[2019-05-30 19:38] LABS: Basophils # (auto) 0.1 uL; Basophils % (auto) 0.9 % (0.0-2.0); Eosinophils # (auto) 0.2 uL; Eosinophils % (auto) 2.2 % (0.0-7.0); Hematocrit 44.4 % (36.0-46.0); Hemoglobin 15.1 g/dL (12.2-16.2); Lymphocytes % (auto) 29.9 % (10.0-50.0); Mean Corpuscular Hemoglobin 32.8 pg (28.0-32.0); Mean Corpuscular Hgb Conc. 34.1 g/dL (32.0-36.0); Mean Corpuscular Volume 96.2 fL (80.0-100.0); Monocytes # (auto) 0.6 uL; Monocytes % (auto) 8.1 % (0.0-12.0); Neutrophils % (auto) 58.9 % (37.0-80.0); Platelet Count (auto) 206 10^3/uL (140-450); Red Blood Cells 4.62 10^6/uL (4.0-5.20); Red Cell Distribution Width 14.4 % (11.8-14.3); White Blood Cell 6.9 10^3/uL (4.4-10.8)
[2019-05-30 19:56] LABS: Alanine Aminotransferase 17 U/L (13-56); Albumin 3.4 g/dL (3.4-5.0); Anion Gap 9 (5-15); Aspartate Aminotransferase 17 U/L (15-37); BUN/Creatinine Ratio 22.9; Blood Urea Nitrogen 24 mg/dL (7-18); Calcium 9.3 mg/dL (8.5-10.1); Carbon Dioxide 27 mmol/L (21-32); Chloride 104 mmol/L (98-107); GFR African American 65 mL/min; GFR Non-African American 53 mL/min; Glucose 183 mg/dL (74-106); INR 0.97 (0.9-1.15); Partial Thromboplastin Time 28.4 sec (23.64-32.05); Sodium 140 mmol/L (136-145)
[2019-05-30 20:01] LABS: Alkaline Phosphatase 95 U/L (45-117); Bilirubin, Total 0.3 mg/dL (0.2-1.0); Total Protein 7.2 g/dL (6.4-8.2)
[2019-05-30 20:04] LABS: Potassium 2.8 mmol/L (3.5-5.1)
[2019-05-30] MEDS ORDERED: POTASSIUM CHL 20MEQ/100ML 100 ML IV ONE (23:00)
[2019-05-30] MEDS ORDERED: POTASSIUM EFFERVESENT TAB 25 MEQ PO ONE (23:00)
[2019-05-30] MEDS ORDERED: IPRATROPIUM BROM 0.5 MG/2.5ML INH SOL NEB ONE (23:15)
[2019-05-30] MEDS ORDERED: ALBUTEROL SULF 2.5 MG/0.5ML(0.5%) NEB SOLN NEB ONE (23:15)
[2019-05-30 23:36] LABS: Urine Bacteria FEW /hpf (None Seen); Urine Blood 1+ /uL (Negative); Urine Specific Gravity 1.016 (1.001-1.035); Urine WBC <1 /hpf (0 - 5)
[2019-05-31] MEDS ORDERED: methylPREDNISolone SOD SUCC 125 MG/2 ML VL IV ONE (01:30)
[2019-05-31 03:03] LABS: Potassium 4.7 mmol/L (3.5-5.1)
[2019-05-31 05:00] VITALS: BP 116/58
== END 2019-05-31 06:27 | disposition home or self-care (01) ==
LOC: ER 18:57
DX: J44.1 Chronic obstructive pulmonary disease with (acute) exacerbation (principal); E87.6 Hypokalemia; I10 Essential (primary) hypertension; K21.9 Gastro-esophageal reflux disease without esophagitis; M19.90 Unspecified osteoarthritis, unspecified site; Z90.89 Acquired absence of other organs; Z90.710 Acquired absence of both cervix and uterus
CPT/HCPCS: 36415; 71045; 84132; 84484; 93005; 94640; 96365; 96366; 96375; 99284; J2930; J3480; J7611; J7644

== ENCOUNTER → 2019-12-23 | Outpatient (CLI) | payer OTHER, MEDICAID ==
[2019-12-23 10:27] LABS: Basophils # (auto) 0 10 ^3/uL (0-0.2); Basophils % (auto) 0.6 % (0.0-2.0); Eosinophils # (auto) 0.2 10 ^3/uL (0-0.8); Eosinophils % (auto) 2.3 % (0.0-7.0); Hematocrit 44.8 % (36.0-46.0); Hemoglobin 15.4 g/dL (12.2-16.2); Lymphocytes # (auto) 1.9 10 ^3/uL (0.4-5.4); Lymphocytes % (auto) 28.2 % (10.0-50.0); Mean Corpuscular Hemoglobin 32.8 pg (28.0-32.0); Mean Corpuscular Hgb Conc. 34.3 g/dL (32.0-36.0); Mean Corpuscular Volume 95.6 fL (80.0-100.0); Monocytes # (auto) 0.4 10 ^3/uL (0-1.3); Monocytes % (auto) 6.6 % (0.0-12.0); Neutrophils # (auto) 4.1 10 ^3/uL (1.6-8.6); Neutrophils % (auto) 62.3 % (37.0-80.0); Platelet Count (auto) 217 10^3/uL (140-450); Red Blood Cells 4.69 10^6/uL (4.0-5.20); White Blood Cell 6.6 10^3/uL (4.4-10.8)
[2019-12-23 10:35] LABS: Urine Bacteria FEW /hpf (None Seen); Urine Blood 1+ /uL (Negative); Urine Mucus FEW (None Seen); Urine Specific Gravity 1.021 (1.001-1.035); Urine WBC 21 /hpf (0 - 5)
[2019-12-23 11:06] LABS: Potassium 3.2 mmol/L (3.5-5.1)
[2019-12-23 11:15] LABS: Albumin 3.2 g/dL (3.4-5.0); Bilirubin, Total 0.7 mg/dL (0.2-1.0); Calcium 9.5 mg/dL (8.5-10.1); Total Protein 7.6 g/dL (6.4-8.2)
== END | disposition home or self-care (01) ==
LOC: LAB 09:54
PROVIDERS: ATTEND Internal Medicine
DX: I10 Essential (primary) hypertension (principal); F03.90 Unspecified dementia, unspecified severity, without behavioral disturbance, psychotic disturbance, mood disturbance, and anxiety; E11.69 Type 2 diabetes mellitus with other specified complication
CPT/HCPCS: 36415; 80053; 80061; 81001; 82043; 83036; 84443; 85025

== ENCOUNTER → 2020-07-20 | Outpatient (CLI) | payer OTHER, MEDICAID ==
[~2020-07-20] MED LIST changes: +METH2.5T PO; -METH2.5T3 PO
[2020-07-20 08:58] LABS: Basophils # (auto) 0 10 ^3/uL (0-0.2); Basophils % (auto) 0.8 % (0.0-2.0); Eosinophils # (auto) 0.2 10 ^3/uL (0-0.8); Eosinophils % (auto) 3.8 % (0.0-7.0); Hematocrit 46.9 % (36.0-46.0); Hemoglobin 15.9 g/dL (12.2-16.2); Lymphocytes # (auto) 1.7 10 ^3/uL (0.4-5.4); Lymphocytes % (auto) 29.8 % (10.0-50.0); Mean Corpuscular Hemoglobin 32.9 pg (28.0-32.0); Mean Corpuscular Volume 96.9 fL (80.0-100.0); Monocytes # (auto) 0.5 10 ^3/uL (0-1.3); Monocytes % (auto) 8.4 % (0.0-12.0); Neutrophils # (auto) 3.2 10 ^3/uL (1.6-8.6); Neutrophils % (auto) 57.2 % (37.0-80.0); Nucleated Red Blood Cells % 0.1 %; Platelet Count (auto) 223 10^3/uL (140-450); Red Blood Cells 4.84 10^6/uL (4.0-5.20); White Blood Cell 5.7 10^3/uL (4.4-10.8)
[2020-07-20 09:39] LABS: Albumin 3.6 g/dL (3.4-5.0); Calcium 9.5 mg/dL (8.5-10.1); Magnesium 2.3 mg/dL (1.6-2.6); Potassium 4.2 mmol/L (3.5-5.1)
[2020-07-20 09:43] LABS: BUN/Creatinine Ratio 32.1; Bilirubin, Total 0.6 mg/dL (0.2-1.0); Total Protein 7.5 g/dL (6.4-8.2)
[2020-07-20 09:53] LABS: Folate (Folic Acid) > 24.00 ng/mL (5.38-24)
== END | disposition home or self-care (01) ==
LOC: LAB 08:31
PROVIDERS: ATTEND Internal Medicine
DX: E11.22 Type 2 diabetes mellitus with diabetic chronic kidney disease (principal); I12.9 Hypertensive chronic kidney disease with stage 1 through stage 4 chronic kidney disease, or unspecified chronic kidney disease; N18.9 Chronic kidney disease, unspecified
CPT/HCPCS: 36415; 80053; 80061; 82607; 82746; 83036; 83735; 85025

== ENCOUNTER → 2022-01-08 | Outpatient (CLI) | payer OTHER, MEDICAID ==
[~2022-01-08] MED LIST changes: -PYRI50TA PO; +PYRI50TA9 PO
[2022-01-08 15:03] LABS: Basophils # (auto) 0.1 10 ^3/uL (0-0.2); Basophils % (auto) 0.6 % (0.0-2.0); Eosinophils # (auto) 0.1 10 ^3/uL (0-0.8); Eosinophils % (auto) 0.7 % (0.0-7.0); Hematocrit 46.2 % (36.0-46.0); Hemoglobin 15.7 g/dL (12.2-16.2); Lymphocytes # (auto) 2.2 10 ^3/uL (0.4-5.4); Mean Corpuscular Hemoglobin 32.3 pg (28.0-32.0); Mean Corpuscular Hgb Conc. 34.1 g/dL (32.0-36.0); Mean Corpuscular Volume 94.8 fL (80.0-100.0); Monocytes # (auto) 0.7 10 ^3/uL (0-1.3); Monocytes % (auto) 6.8 % (0.0-12.0); Neutrophils # (auto) 7.1 10 ^3/uL (1.6-8.6); Neutrophils % (auto) 69.9 % (37.0-80.0); Nucleated Red Blood Cells % 0.1 %; Red Blood Cells 4.87 10^6/uL (4.0-5.20); Red Cell Distribution Width 13.8 % (11.8-14.3); White Blood Cell 10.1 10^3/uL (4.4-10.8)
[2022-01-08 15:12] LABS: Urine Bacteria NONE SEEN /hpf (None Seen); Urine Blood 1+ /uL (Negative); Urine Mucus FEW (None Seen); Urine Specific Gravity 1.018 (1.001-1.035); Urine WBC 819 /hpf (0 - 5); Urine WBC Clumps PRESENT /hpf (None Seen)
[2022-01-08 15:31] LABS: Albumin 3.3 g/dL (3.4-5.0); BUN/Creatinine Ratio 22.4; Calcium 9.4 mg/dL (8.5-10.1)
[2022-01-08 15:33] LABS: Bilirubin, Total 0.6 mg/dL (0.2-1.0); Total Protein 7.3 g/dL (6.4-8.2)
== END | disposition home or self-care (01) ==
LOC: LAB 14:42
PROVIDERS: ATTEND Internal Medicine
DX: Z01.812 Encounter for preprocedural laboratory examination (principal)
CPT/HCPCS: 36415; 80053; 81001; 85025

== ENCOUNTER 2022-02-21 19:54 | Emergency (ER) | payer OTHER, MEDICAID ==
[~2022-02-21] VITALS: Ht 167.6 cm; Wt 72.6 kg
[2022-02-21 20:30] VITALS: BP 141/68
== END 2022-02-21 22:45 | disposition home or self-care (01) ==
LOC: EDBD 19:54 → ER 19:54
DX: R25.1 Tremor, unspecified (principal); T50.905A Adverse effect of unspecified drugs, medicaments and biological substances, initial encounter; J44.9 Chronic obstructive pulmonary disease, unspecified; I10 Essential (primary) hypertension; K21.9 Gastro-esophageal reflux disease without esophagitis; Z86.73 Personal history of transient ischemic attack (TIA), and cerebral infarction without residual deficits; Z90.49 Acquired absence of other specified parts of digestive tract; Z90.710 Acquired absence of both cervix and uterus; Z79.899 Other long term (current) drug therapy; Z88.8 Allergy status to other drugs, medicaments and biological substances; Y92.89 Other specified places as the place of occurrence of the external cause
CPT/HCPCS: 93005

== ENCOUNTER → 2022-03-06 | Outpatient (CLI) | payer OTHER ==
[2022-03-06 09:19] LABS: Basophils # (auto) 0.1 10 ^3/uL (0-0.2); Eosinophils # (auto) 0.2 10 ^3/uL (0-0.8); Eosinophils % (auto) 3.1 % (0.0-7.0); Hematocrit 47.4 % (36.0-46.0); Hemoglobin 16.1 g/dL (12.2-16.2); Lymphocytes # (auto) 2.7 10 ^3/uL (0.4-5.4); Lymphocytes % (auto) 34.9 % (10.0-50.0); Mean Corpuscular Hemoglobin 32.2 pg (28.0-32.0); Mean Corpuscular Volume 94.8 fL (80.0-100.0); Monocytes # (auto) 0.6 10 ^3/uL (0-1.3); Monocytes % (auto) 8.1 % (0.0-12.0); Neutrophils # (auto) 4.1 10 ^3/uL (1.6-8.6); Neutrophils % (auto) 52.9 % (37.0-80.0); Nucleated Red Blood Cells % 0.1 %; Red Cell Distribution Width 13.5 % (11.8-14.3); White Blood Cell 7.9 10^3/uL (4.4-10.8)
[2022-03-06 09:43] LABS: INR 1.35 (0.9-1.15); Partial Thromboplastin Time 37.5 sec (23.6-33.0)
[2022-03-06 10:17] LABS: Potassium 4.4 mmol/L (3.5-5.1)
[2022-03-06 10:32] LABS: Albumin 3.4 g/dL (3.4-5.0); BUN/Creatinine Ratio 28.4; Bilirubin, Total 0.7 mg/dL (0.2-1.0); Calcium 10.3 mg/dL (8.5-10.1); Total Protein 7.6 g/dL (6.4-8.2)
== END | disposition home or self-care (01) ==
LOC: LAB 08:55
PROVIDERS: ATTEND Student in an Organized Health Care Education/Training Program
DX: Z01.812 Encounter for preprocedural laboratory examination (principal); Z00.01 Encounter for general adult medical examination with abnormal findings; D75.1 Secondary polycythemia
CPT/HCPCS: 36415; 80053; 80061; 83036; 84443; 85025; 85610; 85730

== ENCOUNTER → 2022-11-13 | Outpatient (CLI) | payer OTHER | END | disposition home or self-care (01) | LOC: LAB 06:06 | PROVIDERS: ATTEND Internal Medicine Pulmonary Disease | DX: Z01.812 Encounter for preprocedural laboratory examination (principal); Z20.822 Contact with and (suspected) exposure to COVID-19 | CPT/HCPCS: 36415; 87426 ==

== ENCOUNTER → 2022-11-13 | Outpatient (CLI) | payer OTHER ==
[~2022-11-13] MED LIST changes: +ALBUTEROL MEDNEB 2.5 mg/3ml NEB ONE
== END | disposition home or self-care (01) ==
LOC: EDSTATUS 08-01 13:23 → RT 15:52
PROVIDERS: ATTEND Internal Medicine Pulmonary Disease
DX: J44.9 Chronic obstructive pulmonary disease, unspecified (principal)
CPT/HCPCS: 94060; 94727; 94729

== ENCOUNTER 2022-12-29 16:14 | Emergency (ER) | payer OTHER ==
[~2022-12-29] VITALS: Ht 167.6 cm; Wt 82.0 kg
[~2022-12-29 16:14] MED LIST changes: -ALBUTEROL MEDNEB 2.5 mg/3ml NEB ONE
[2022-12-29 16:30] VITALS: BP 138/64
[2022-12-29] MEDS ORDERED: SODIUM CHLORIDE 0.9% 500 ML IVB ONE (16:30)
== END 2022-12-29 16:50 | disposition left against medical advice (07) ==
LOC: EDBD 16:14 → ER 16:14
DX: R53.1 Weakness (principal); F03.90 Unspecified dementia, unspecified severity, without behavioral disturbance, psychotic disturbance, mood disturbance, and anxiety; I10 Essential (primary) hypertension; E11.9 Type 2 diabetes mellitus without complications; J44.9 Chronic obstructive pulmonary disease, unspecified; M19.90 Unspecified osteoarthritis, unspecified site; K21.9 Gastro-esophageal reflux disease without esophagitis; F17.210 Nicotine dependence, cigarettes, uncomplicated; Z86.73 Personal history of transient ischemic attack (TIA), and cerebral infarction without residual deficits; Z87.440 Personal history of urinary (tract) infections; Z90.89 Acquired absence of other organs; Z90.710 Acquired absence of both cervix and uterus; Z88.8 Allergy status to other drugs, medicaments and biological substances